=== PATIENT | female | born 1935 | race Caucasian/White ===

== ENCOUNTER 2020-03-27 13:08 | Outpatient (CLI) | payer MEDICARE, SELFPAY ==
--- NOTE | ~2020-03-27 | MM_ITS ---
EXAMINATION: MM screening [facility] BI w yael HISTORY: Screening mammogram TECHNIQUE: Craniocaudal and mediolateral oblique 3-D tomosynthesis images were obtained and synthetic 2-D images were generated. CAD analysis was submitted and interpreted. COMPARISON: 03/16/2019, 03/11/2013 BREAST PARENCHYMAL COMPOSITION: There are scattered areas of fibroglandular density. FINDINGS: There is no evidence of suspicious mass, calcification, or architectural distortion to sugg est malignancy in either breast. There has been no suspicious interval change. IMPRESSION: 1. No mammographic evidence of malignancy. 2. Recommend routine screening mammography in one year. BI-RADS Category 1: Negative Reviewed, dictated and finalized at location A.
== END 2020-03-27 13:09 | disposition home or self-care (01) ==
LOC: CHSIMG 13:10
PROVIDERS: PCP Family Medicine; Visit Provider Family Medicine
DX: Z12.31 Encounter for screening mammogram for malignant neoplasm of breast (principal)
CPT/HCPCS: 77063; 77067

== ENCOUNTER 2020-05-27 09:10 | Emergency (ER) | payer MEDICARE, SELFPAY ==
--- NOTE | ~2020-05-27 | CT_ITS ---
EXAMINATION: CT chest abdomen pelvis w con EXAM DATE: 05/27/2020 11:26 INDICATION: Hx lymphoma chest pain lateral to left mid t spine. TECHNIQUE: Spiral CT of the chest, abdomen and pelvis was performed following intravenous injection o f 100 mL Omnipaque 350. Axial, coronal and sagittal images were reviewed. Coronal maximum intensity pixel images of chest reviewed. The dose-length product (DLP) for this examination was 330.57 mGy-c m. The exposure was tailored according to patient size (auto mA exposure control), and iterative rec onstruction (ASIR) was used as additional dose reduction technique. There is no prior study for jose roberto jones. FINDINGS: CHEST: There is descending thoracic aortic aneurysm, measuring up to 4.6 cm. No dissection flap. The lungs are clear. There are no pleural or pericardial effusions. Tracheobronchial tree is patent. There is no mediastinal, hilar or axillary lymphadenopathy. There is no pneumothorax. Heart nor mal in size. There is mild coronary arterial calcification, arterial sclerosis. No central pulmonar y emboli. ABDOMEN PELVIS: The liver, spleen, adrenal glands and pancreas are unremarkable. Gallbladder is unre markable. No biliary obstruction. Portal and splenic veins are patent. Kidneys enhance symmetrical ly. There is no hydronephrosis. The uterus is unremarkable. The bladder is unremarkable. There is no retroperitoneal or pelvic lymphadenopathy. There is moderate scattered arteriosclerotic disea se. The appendix is normal. There is 4 cm duodenal diverticulum. Stomach and small bowel are unremarkabl e. There is expected amount of colonic stool. No free intraperitoneal gas. There are no osteobla stic or osteolytic lesions identified. IMPRESSION: 1. Descending thoracic aortic aneurysm up to 4.6 cm. No dissection. 2. No acute thoracic or abdominal pelvic findings. 3. No lymphadenopathy. Reviewed, dictated and finalized at location A. HOUSE GUARD
[2020-05-27 09:29] VITALS: BP 177/70; PULSE 69; RESP 20; TEMP 36.9; O2SAT 97
[2020-05-27 10:11] LABS: Basophils Absolute Auto 0.01 K/mm3 (0.00-0.10); Basophils Percent Auto 0.2 % (0.0-1.0); Eosinophils Absolute Auto 0.01 K/mm3 (0.02-0.50); Eosinophils Percent Auto 0.2 % (1.0-6.0); Hematocrit 39.3 % (35.0-42.0); Hemoglobin 12.7 g/dL (11.7-13.8); Immature Granulocyte Absolute 0.01 K/mm3 (0.00-0.00); Immature Granulocyte Percent A 0.2 % (0.0-0.0); Lymphocytes Percent Auto 16.4 % (18.0-42.0); Mean Corpuscular HGB Conc 32.3 g/dL (32.0-36.0); Mean Corpuscular Hemoglobin 31.5 pg (27.0-31.0); Mean Corpuscular Volume 97.5 fL (78.0-102.0); Mean Platelet Volume 9.9 fl (9.2-11.8); Monocytes Percent Auto 14.1 % (2.0-11.0); Neutrophils Absolute Auto 2.9 K/mm3 (1.7-7.2); Neutrophils Percent Auto 68.9 % (50.0-70.0); Platelet Count Result 168 K/mm3 (150-420); Red Blood Count 4.03 M/mm3 (4.20-5.40); Red Cell Distribution Width 13.2 % (11.6-14.4); White Blood Count 4.3 K/mm3 (4.8-10.8)
[2020-05-27 10:26] LABS: Lactic Acid Reflex 1.1 mmol/L (0.4-2.0)
[2020-05-27] MEDS: KETOROLAC 30 MG/ML VIAL (*BKC) IM (10:28)
[2020-05-27 10:33] LABS: Appearance Urine Clear (Clear); Bilirubin Urine Negative (Negative); Color Urine Yellow (Yellow); Glucose Urine UA Negative (Negative); Ketones Urine Negative (Negative); Leukocyte Esterase Ur 3+ (Negative); Nitrate Urine Negative (Negative); Protein Urine Trace (Negative); Urobilinogen Urine 0.2 mg/dL (0.2-1.0)
[2020-05-27 10:33] LABS: Alanine Aminotransferase 23 U/L (14-59); Albumin Level 3.8 g/dL (3.4-5.0); Alkaline Phosphatase 83 U/L (46-116); Anion Gap 8 mmol/L (8-16); Aspartate Amino Transferase 20 U/L (15-37); Bilirubin,Total 0.5 mg/dL (0.00-1.00); Blood Urea Nitrogen 21 mg/dL (7-18); Carbon Dioxide 27 mmol/L (21-32); Chloride 103 mmol/L (98-108); Estimated CRCL calculation 29 ml/min; Estimated Glomerular Filt Rate 39; Glucose 92 mg/dL (70-99); Osmolality Calculated 289 mOsm/kg (285-295); Potassium 3.6 mmol/L (3.5-5.1); Sodium 138 mmol/L (136-145); Total Protein 6.8 g/dL (6.4-8.2)
--- NOTE | 2020-05-27 10:37 | PC.NURSE ---
report to viet valenzuela
[2020-05-27 10:39] LABS: Add Urine Microscopic? YES; Blood Urine Trace-Intact (Negative)
[2020-05-27 10:40] LABS: RBC Urine 0-2 /hpf (0-2); Squamous Epithelial Cell Urine Few /hpf (Few); WBC Urine 21-30 /hpf (0-3)
[2020-05-27 10:41] LABS: Bacteria Urine 1+ /hpf
[2020-05-27 11:00] VITALS: BP 163/74; PULSE 55; O2SAT 97
--- NOTE | 2020-05-27 12:12 | ED.BACK ---
HPI - Back Pain/Injury General Chief Complaint: Back Pain/Injury Stated Complaint: Pain in Back Time Seen by Provider: 05/27/20 09:40 Source: patient Mode of arrival: ambulatory Limitations: no limitations History of Present Illness HPI Narrative: Patient comes in complaining of back pain in the left back at the mid thoracic area. She states this has been ongoing for several days. She does not relate this to any known injury or trama, or heavy lifting or other cause. Pain is moderately severe, dull, not releived by measures at home. MD elicited complaint: back pain Timing: constant Severity: moderate Quality: dull Location: thoracic spine Radiation: none Exacerbating factors: none Relieving factors: none Associated symptoms: denies other symptoms Treatments prior to arrival: NSAIDS Related Data Home Medications Medication Instructions Recorded Confirmed Unable to Obtain Home Medications 05/27/20 05/27/20 Allergies Allergy/AdvReac Type Severity Reaction Status Date / Time aspirin Allergy Unknown Verified 05/27/20 09:37 Penicillins Allergy Unknown Verified 05/27/20 09:37 Review of Systems Constitutional: Constitutional: Reports no additional constitutional complaints Eyes: Eyes: Reports no additional eye complaints ENT: Reports system reviewed and no additional complaints, except as documented Cardiovascular: Cardiovascular: Reports no additional cardiovascular complaints Respiratory: Respiratory: Reports no additional respiratory complaints Gastrointestinal: Gastrointestinal: Reports no additional gastrointestinal complaints Genitourinary: Genitourinary: Reports no additional female genitourinary complaints Musculoskeletal: Musculoskeletal: Reports no additional musculoskeletal complaints Integumentary/Breasts: Skin/Breast: Reports system reviewed and no additional complaints, except as docu Neurologic: Reports system reviewed and no additional complaints, except as documented Psychiatric: Psychiatric: Reports no additional psychiatric complaints Endocrine: Endocrine: Reports no additional endocrine complaints Hematologic/Lymphatic: Hematologic/Lymphatic: Reports no additional hematologic/lymphatic complaints Allergic/Immunologic: Allergic/Immunologic: Reports no additional allergic/immunologic complaints [facility] Past Medical History Medical History Hypothyroid Lymphoma Surgical History Surgical History No significant past surgical history Family History Family History Father Lung cancer Social History Social History Smoking status: Never smoker Alcohol intake: never Living arrangements: alone Exam Const: General: no acute distress HENMT: Head: normal to inspection Ears: external ears normal and TM's normal bilaterally General nose exam: Normal external nose present and Normal nares present Throat: posterior oropharynx normal Eyes: Conjunctivae: conjunctivae normal Neck: Neck: normal visual inspection and no lymphadenopathy Chest: Chest palpation & inspection: normal inspection of the chest Resp: Effort & Inspection: normal respiratory effort Auscultation: clear to auscultation bilaterally Cardio: Rate: regular rate Rhythm: regular rhythm GI: GI Palp: Yes Soft to palpation Other: nontender Skin: General skin exam: normal color Neuro: General: patient oriented x3 and moves all extremities Extrem: General: normal to inspection Psych: Appearance: grossly normal Mental Status: mental status grossly normal Thought content: Yes Normal thought content present Course Course Emergency Course: Labs and CT were reviewed with the patient and the family member. It appears she has a pyelonephritis. She was given Rocephin 1 gram, and discharged with a script for le
[2020-05-27 12:32] VITALS: BP 166/71; PULSE 59; O2SAT 96
== END 2020-05-27 12:30 | disposition home or self-care (01) ==
PROVIDERS: Emergency Provider Emergency Medicine; PCP Family Medicine
DX: N12 Tubulo-interstitial nephritis, not specified as acute or chronic (principal)
CPT/HCPCS: 36415; 71260; 74177; 80053; 81001; 83605; 85025; 87086; 87088; 96365; 96372; 99283; 99284; J0696; J1885; Q9965; Q9967

== ENCOUNTER 2020-11-02 07:30 | Outpatient (CLI) | payer MEDICARE, SELFPAY ==
--- NOTE | ~2020-11-02 | CT_ITS ---
EXAMINATION: CTA chest EXAM DATE: 11/02/2020 09:15 INDICATION: Descending thoracic aortic aneurysm f/u, mid to upper posterior back pain. History of lym phoma. TECHNIQUE: Spiral CT angiogram of the chest following intravenous injection of 100 mL Omnipaque 350. Axial, coronal and sagittal images of the chest were reviewed. Coronal maximum intensity pixel imag es of chest reviewed. Maximum intensity projection 3-D reconstructions of the aorta were created by pierce duke technologist on dedicated workstation. The dose-length product (DLP) for this examination was 238 .42 mGy-cm. The exposure was tailored according to patient size (auto mA exposure control), and iter ative reconstruction (ASIR) was used as additional dose reduction technique. Comparison is made to pr ior examination from 05/27/2020. FINDINGS: There is descending thoracic aortic ectasia, aneurysmal dilations with mild interval increase in maxi mal diameter, now at 4.9 cm (was 4.6 cm on previous examination last May). No dissection flap. T he lungs are clear. There are no pleural or pericardial effusions. Tracheobronchial tree is paten t. There is no mediastinal, hilar or axillary lymphadenopathy. There is no pneumothorax. Heart normal in size. There is mild coronary arterial calcification, arterial sclerosis. No central pulmo nary emboli. There is geographically shaped low density within most of the spleen, consistent with infarction. No evidence of splenic venous or arterial thrombosis. IMPRESSION: 1. Increase in size of descending thoracic aortic aneurysm, now up to 4.9 cm; consider prophylactic treatment. 2. 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 I discussed this case with nurse Church in the office of Marcos MaldonadoMD at 11/02/2020 10:32 CDT. S he requested that I faxed the report. Reviewed, dictated and finalized at location B. IMPRESSION: 1. Increase in size of descending thoracic aortic aneurysm, now up to 4.9 cm; consider prophylactic treatment. 2. 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 I discussed this case with nurse Lynnette in the office of Marcos MaldonadoMD at 11/02/2020 10:32 CDT. She requested that I faxed the report.
[2020-11-02 07:56] LABS: Estimated Glomerular Filt Rate 34
== END 2020-11-02 07:31 | disposition home or self-care (01) ==
LOC: CHSIMG 07:31
PROVIDERS: PCP Family Medicine; Visit Provider Family Medicine
DX: I71.2 Thoracic aortic aneurysm, without rupture (principal)
CPT/HCPCS: 71275; Q9967

== ENCOUNTER 2020-11-19 13:14 | Outpatient (CLI) | payer MEDICARE, SELFPAY ==
--- NOTE | ~2020-11-19 | DEXA_ITS ---
Bone Density Report Name: Ileana Francisco Age: 84 Sex: Female Ethnicity: White Date of : 1935 Indication: postmenopausal; screening for osteoporosis; cancer; Referring Provider: Erica, Marcos Study: Bone densitometry was performed. Exam Date: November 19, 2020 Accession number: [id number] There is hypertrophic degenerative change of the lumbar spine, which results in higher than expected spine bone mineral density measurements. These spine BMD and T score and Z score measurements are not reflective of the patient's true general bone mineral density. Bone Density: Region BMD T-score Z-score Classification AP Spine(L1-L4) 0.700 -3.2 -0.4 Osteoporosis Femoral Neck (Left) 0.507 -3.1 -0.7 Osteoporosis Total Hip (Left) 0.649 -2.4 -0.2 Osteopenia Femoral Neck (Right) 0.528 -2.9 -0.5 Osteoporosis Total Hip (Right) 0.685 -2.1 0.1 Osteopenia Femoral Neck Mean 0.517 -3.0 -0.6 Osteoporosis Total Hip Mean 0.667 -2.3 0.0 Osteopenia World Health Organization criteria for BMD impression classify patients as: Normal (T-score at or above -1.0), Osteopenia (T-score between -1.0 and -2.5), or Osteoporosis (T-score at or below -2.5). 10-year Fracture Risk: FRAX not reported because: Some T-score for Spine Total or Hip Total or Femoral Neck at or below -2.5 Clinical Information Provided by Patient: Has used the following medications: Actonel (i.e. risedronate) Has the following medical conditions: Cancer No regular weight bearing exercise Drinks caffeinated beverages Onset of menses at age 15 Impression: The patient has osteoporosis, based on the Total Spine T-score. There is hypertrophic degenerative change of the lumbar spine, which results in higher than expected spine bone mineral density measurements. These spine BMD and T score and Z score measurements are not reflective of the patient's true general bone mineral density. Discussion: INCREASED RISK OF FRACTURE. BONE DENSITY IS UNDESIRABLY LOW AT ONE OR MORE SKELETAL SITES, CONSISTENT WITH POSTMENOPAUSAL OSTEOPOROSIS. This patient's lowest T-score meets the World Health Organization's (WHO) criteria for osteoporosis at one or more sites (T-score -2.5 or below). In untreated patients, the risk of osteoporotic fracture increases approximately two-fold for each 1.0 SD decrease in T-score. Low bone density is not the only risk factor for fracture; also consider factors such as patient's age, frailty or poor health, risk of falling, risk of injury, previous osteoporotic fracture, family history of osteoporosis, cigarette smoking, low body weight, etc. Not everyone with low bone mineral density has osteoporosis; osteomalacia and other metabolic bone disorders should also be considered. Patients who have osteoporosis should be evaluated for specific diseases and conditions (sec
== END 2020-11-19 13:15 | disposition home or self-care (01) ==
LOC: CHSIMG 13:15
PROVIDERS: PCP Family Medicine; Visit Provider Family Medicine
DX: Z78.0 Asymptomatic menopausal state (principal)
CPT/HCPCS: 77080

== ENCOUNTER 2021-03-20 11:51 | Outpatient (CLI) | payer MEDICARE, SELFPAY ==
--- NOTE | ~2021-03-20 | XR_ITS ---
XR chest 2V 03/20/2021 12:30 Indication: Thoracic pain Procedure: 2 view chest Comparison: 03/14/2019 Findings: No focal air space disease, pulmonary edema, pleural effusion or suspected pneumothorax. Th ere is a known descending thoracic aortic aneurysm. Heart size normal. No acute osseous abnormality. Impression: 1: No acute cardiopulmonary disease. 2: Descending thoracic aortic aneurysm. Reviewed, dictated and finalized at location B. Impression: 1: No acute cardiopulmonary disease. 2: Descending thoracic aortic aneurysm.
--- NOTE | ~2021-03-20 | XR_ITS ---
EXAMINATION: XR thoracic spine 3V DATE: 03/20/2021 12:30 INDICATION: Thoracic back pain TECHNIQUE: AP, lateral and lateral swimmer's views of the thoracic spine were obtained. COMPARISON: 06/14/2019 FINDINGS: There is no fracture. The vertebral body heights and alignment are normal. There is mild th oracic dextrocurvature. There is mild loss of intervertebral disc space height in the midthoracic spi ne. Degenerative osteophytes project from the anterior endplates of multiple vertebral bodies. IMPRESSION: 1. Mild thoracic spondylosis without acute findings or significant interval change. Reviewed, dictated and finalized at location A. IMPRESSION: 1. Mild thoracic spondylosis without acute findings or significant interval ben josephe.
== END 2021-03-20 11:52 | disposition home or self-care (01) ==
PROVIDERS: PCP Family Medicine; Visit Provider Family Medicine
DX: M54.6 Pain in thoracic spine (principal)
CPT/HCPCS: 71046; 72072

== ENCOUNTER 2021-03-26 08:01 | Outpatient (CLI) | payer MEDICARE, SELFPAY ==
--- NOTE | ~2021-03-26 | MR_ITS ---
EXAMINATION: MR brain/brain stem wo/w con DATE: 03/26/2021 09:51 INDICATION: Cognitive decline. TECHNIQUE: Magnetic resonance imaging (MRI) of the brain and brainstem was performed without intraven ous contrast. Sequences included sagittal and axial T1-weighted FSE, axial diffusion-weighted FS EPI, axial T2*-weighted GRE, axial T2-weighted FLAIR Propeller, and axial T2-weighted Propeller. The greyson mated GFR was too low for contrast. Apparent diffusion coefficient (ADC) maps were created. COMPARISON: None. FINDINGS: There is a small acute infarct in left frontal lobe. There are scattered areas of nonspecif ic increased T2-weighted signal intensity in the cerebral white matter, which is within normal limits for the patient's age. There is no intracranial hemorrhage or abnormal mass lesion. The ventricles a re normal in size. The orbits are normal. There is mild mucosal thickening in the ethmoid sinuses. Th e mastoid air cells are normal. IMPRESSION: 1. Small acute infarct in left frontal lobe. Reviewed, dictated and finalized at location A.
[2021-03-26 08:24] LABS: Estimated Glomerular Filt Rate 34
== END 2021-03-26 08:02 ==
LOC: CHSIMG 08:02
PROVIDERS: PCP Family Medicine; Visit Provider Family Medicine
DX: R41.89 Other symptoms and signs involving cognitive functions and awareness (principal); I63.9 Cerebral infarction, unspecified
CPT/HCPCS: 70553

== ENCOUNTER 2021-04-12 13:52 | Outpatient (CLI) | payer MEDICARE, SELFPAY ==
--- NOTE | ~2021-04-12 | US_ITS ---
EXAMINATION: US carotid duplex BI DATE: 04/12/2021 14:29 INDICATION: Cerebrovascular accident TECHNIQUE: Grayscale, color Doppler, and pulsed Doppler images of the cervical carotid arteries were obtained. The degree of vessel stenosis is placed in one of the following categories: normal, <50%, 5 0-69%, >=70% but less than near-occlusion, near-occlusion, or total occlusion. Note that percent sten osis relative to normal distal artery lumen diameter is indirectly measured from velocity measurement s as described by Dexter, et al. Radiology 2003; 229:340-346. Notes: Normal: Peak systolic velocity <125 centimeters/sec and no plaque <50%. Peak systolic velocity <125 ( EDV <40; ICA/CCA PSV ratio <2.0; used these factors only a tandem lesions or low cardiac output or co ntralateral disease) 50-69 %: PSV 125-230 (EDV 40-100; ratio 2-4) >= 70% but less than near occlusion: PSV greater than 230 (EDV > 100; ratio> 4.0) Near Occlusion: PSV that is variable; markedly narrowed lumen Occlusion: Absent flow on color/spectral Doppler and no lumen on serrato scale. COMPARISON: None. FINDINGS: RIGHT: The right common carotid artery (CCA) peak systolic velocity (PSV) is 65 cm/s. The right internal car otid artery (ICA) PSV is 51 cm/s. The right ICA end-diastolic velocity (EDV) is 11 cm/s. The right IC A/CCA PSV ratio is 0.8. The external carotid artery (ECA) PSV is 61 cm/s. There is antegrade flow in the right vertebral artery. LEFT: The left CCA PSV is 70 cm/s. The left ICA PSV is 62 cm/s. The left ICA EDV is 17 cm/s. The left ICA/C CA PSV ratio is 0.9. The ECA PSV is 62 cm/s. There is antegrade flow in the left vertebral artery. IMPRESSION: 1. Less than 50% stenosis in the right internal carotid artery by sonographic criteria. 2. Less than 50% stenosis in the left internal carotid artery by sonographic criteria. Reviewed, dictated and finalized at location A. LITIES AND GROUNDS DIRECTOR IMPRESSION: 1. Less than 50% stenosis in the right internal carotid artery by sonographic tuan wen. 2. Less than 50% stenosis in the left internal carotid artery by sonographic vale jaimes.
== END 2021-04-12 13:53 | disposition home or self-care (01) ==
LOC: CHSIMG 13:53
PROVIDERS: PCP Family Medicine; Visit Provider Family Medicine
DX: I63.9 Cerebral infarction, unspecified (principal)
CPT/HCPCS: 93880

== ENCOUNTER 2021-04-18 12:12 | Outpatient (CLI) | payer MEDICARE, SELFPAY ==
--- NOTE | 2021-04-18 09:30 | ECHO_ITS ---
Patient Info Name: Ileana Francisco Age: 85 years : 1935 Gender: Female Ht: 62 in Wt: 150 lbs BSA: 1.74 m2 HR: 57 bpm BP: 174 / 80 mmHg Exam Date: 04/18/2021 1:46 PM Exam Location: [facility] Patient Status: Outpatient Admit Date: 04/18/2021 Staff Ordering Physician: EricaMarcos MD Laborer Tin Can: Nila Attending Provider: EricaMarcos MD Exam Type: CA echo doppler color flow Study Info Indications I63.219 - Cerebral infarction due to unspecified occlusion or stenosis of unspecified vertebral arteries Complete two-dimensional, color flow and Doppler transthoracic echocardiogram is performed. Strain analysis performed. Summary 1. Complete two-dimensional, color flow and Doppler transthoracic echocardiogram is performed. 2. Left ventricular chamber dimension is normal. 3. Left ventricular systolic function is normal, estimated at 55-60%. 4. The left ventricular diastolic function is grade I diastolic dysfunction. 5. E/e' 13 is mildly elevated. 6. Global longitudinal strain is normal at -17.2%. 7. Left atrial chamber dimension is mildly enlarged. 8. There is mild aortic valve sclerosis. 9. The mitral valve has moderately calcified annulus. 10. There is mild pulmonic regurgitation. Left Ventricle E/e' 13 is mildly elevated. Global longitudinal strain is normal at -17.2%. Left ventricular chamber dimension is normal. Left ventricular systolic function is normal, estimated at 55-60%. The left ventricular diastolic function is grade I diastolic dysfunction. Right Ventricle Right ventricular systolic function is normal and with normal TAPSE 1.7 cm. Right ventricular chamber dimension is normal. Left Atria Left atrial chamber dimension is mildly enlarged. Right Atria Right atrial chamber dimension is normal. Aortic Valve The aortic valve is trileaflet. There is mild aortic valve sclerosis. There is no aortic valve stenosis. There is no aortic valve regurgitation. Pulmonic Valve There is mild pulmonic regurgitation. Mitral Valve The mitral valve has moderately calcified annulus. There is no mitral valve stenosis. There is no mitral valve regurgitation. Tricuspid Valve There is no tricuspid valve regurgitation. Pericardium/Pleural There is no pericardial effusion. Inferior Vena Cava Normal inferior vena cava with >50% collapse upon inspiration consistent with normal right atrial pressure, 5 mmHg. Aorta The aortic root size at the sinus of Valsalva is normal. Left Ventricular Outflow Tract Name Value Normal LVOT 2D LVOT Diameter 1.9 cm LVOT Doppler LVOT Peak Velocity 116 cm/s LVOT Peak Gradient 5 mmHg LVOT Mean Gradient 2 mmHg LVOT VTI 22 cm LVOT VTI/AV VTI Ratio 0.8 LVOT Stroke Volume 61 ml Mitral Valve Name Value Normal
== END 2021-04-18 12:13 | disposition home or self-care (01) ==
LOC: CHSIMG 12:14
PROVIDERS: PCP Family Medicine; Visit Provider Family Medicine
DX: I63.9 Cerebral infarction, unspecified (principal)
CPT/HCPCS: 93306

== ENCOUNTER 2021-10-02 12:43 | Outpatient (CLI) | payer MEDICARE, SELFPAY ==
--- NOTE | ~2021-10-02 | MM_ITS ---
EXAMINATION: MM screening [facility] BI w yael HISTORY: Screening mammogram TECHNIQUE: Craniocaudal and mediolateral oblique 3-D tomosynthesis images were obtained and synthetic 2-D images were generated. CAD analysis was submitted and interpreted. COMPARISON: 03/27/2020, 03/16/2019 bilateral screening mammogram examinations BREAST PARENCHYMAL COMPOSITION: There are scattered areas of fibroglandular density. FINDINGS: There is a biopsy marker on the left. There is no evidence of suspicious mass, calcificatio n, or architectural distortion to suggest malignancy in either breast. There has been no suspicious i nterval change. IMPRESSION: 1. No mammographic evidence of malignancy. 2. Recommend routine screening mammography in one year. BI-RADS Category 1: Negative Reviewed, dictated and finalized at location D.
== END 2021-10-02 12:44 | disposition home or self-care (01) ==
LOC: CHSIMG 12:44
PROVIDERS: PCP Family Medicine; Visit Provider Family Medicine
DX: Z12.31 Encounter for screening mammogram for malignant neoplasm of breast (principal)
CPT/HCPCS: 77063; 77067

== ENCOUNTER 2022-09-25 16:50 | Emergency (ER) | payer MEDICARE, SELFPAY ==
--- NOTE | ~2022-09-25 | XR_ITS ---
EXAMINATION: XR thoracolumbar DATE: 09/25/2022 18:05 INDICATION: Mid to low back pain. TECHNIQUE: 2 views of the thoracolumbar spine on 4 radiographs were obtained. COMPARISON: Thoracic spine radiographs 03/20/2021 FINDINGS: There is 23 degrees levoscoliosis of thoracolumbar spine. Vertebral body heights are normal . There is 3 mm retrolisthesis of L2 on L3 and L3 on L4. There are endplate osteophytes at most level s. There is severely decreased disc height at L2-L3. There is multilevel severe facet joint osteoarth ritis in lower lumbar spine. IMPRESSION: 1. Severe lumbar spondylosis. 2. Thoracolumbar levoscoliosis. Reviewed, dictated and finalized at location E.
[2022-09-25 16:50] VITALS: BP 123/66; PULSE 65; RESP 16; TEMP 36.5; O2SAT 98
[2022-09-25] MEDS: ACETAMINOPHEN 500 MG TABLET 1000 MG PO (17:45)
--- NOTE | 2022-09-25 18:20 | ED.FALL ---
HPI - Fall General Chief Complaint: Fall Stated Complaint: fall Time Seen by Provider: 09/25/22 17:05 Source: patient and family Mode of arrival: ambulatory Limitations: no limitations History of Present Illness HPI Narrative: This is a 86-year-old female that presents after she was walking outdoors and peak is now up her meals on wheels and tripped on over size shoes that she put on toe step outside patient feels that she tweaked her back and is having mid and low back pain from the fall with no loss of consciousness no head injury no other injuries. complaint: fall Onset (ago): hour(s) Fall from: standing Fall witnessed: no Place fall occurred: home Loss of consciousness: none Prolonged down time: no Symptoms prior to fall: none Context: tripped/slipped Severity: moderate Severity scale (1-10): 6 Quality: aching Related Data Home Medications Medication Instructions Recorded Confirmed Unable to Obtain Home Medications 05/27/20 05/27/20 Allergies Allergy/AdvReac Type Severity Reaction Status Date / Time aspirin Allergy Unknown Verified 09/25/22 17:18 Penicillins Allergy Unknown Verified 09/25/22 17:18 Review of Systems Review of Systems: All systems reviewed & are unremarkable except as noted in HPI and below PMFSH Past Medical History Medical History Hypothyroid Lymphoma Surgical History Surgical History No significant past surgical history Family History Family History Father Lung cancer Social History Social History Smoking status: Never smoker Alcohol intake: never Living arrangements: alone Exam Const: General: healthy appearing Nutritional Appearance: well nourished Orientation/consciousness: patient oriented x3 Limitations: no limitations HENMT: Face/Nose/Sinus: Normal external nose present Face and sinus: normal facial exam Eyes: Conjunctivae: conjunctivae normal Pupils: Equal, round and reactive pupils present EOM: EOMs intact bilaterally Direct Ophthalmoscopy: no photophobia Neck: Neck: normal visual inspection Chest: Chest palpation & inspection: normal inspection of the chest Resp: Effort & Inspection: normal respiratory effort Cardio: Rate: regular rate Rhythm: regular rhythm GI: GI Palp: Yes Soft to palpation Auscultation: normal bowel sounds Urinary Catheter: Urinary Catheter: patent and draining Back/Spine/Pelvis: Back: no CVA tenderness Skin: General skin exam: normal color Rashes: no rashes Wounds: no wounds Neuro: General: patient oriented x3 and moves all extremities Cranial nerves: Yes Nystagmus not present Extrem: General: normal to inspection Psych: Mental Status: mental status grossly normal Affect: normal affect Course Course Emergency Course: Patient had IM Toradol which improved her pain level and x-ray of the thoracic and lumbar spine showed no acute fractures. Vital Signs Vital signs: Vital Signs Temperature 36.5 C 09/25/22 16:50 Pulse Rate 65 09/25/22 16:50 Respiratory Rate 16 09/25/22 16:50 Blood Pressure 123/66 09/25/22 16:50 Pulse Oximetry 98 09/25/22 16:50 Oxygen Delivery Room Air 09/25/22 16:50 Temperature 36.5 C 09/25/22 16:50 Pulse Rate 65 09/25/22 16:50 Respiratory Rate 16 09/25/22 16:50 Blood Pressure 123/66 09/25/22 16:50 Pulse Oximetry 98 09/25/22 16:50 Oxygen Delivery Room Air 09/25/22 16:50 Critical Care Time Critical Care Time Critical Care Time: No Discharge Plan Discharge Clinical Impression: Back strain Qualifiers: Encounter type: initial encounter Qualified Code(s): S39.012A - Strain of muscle, fascia and tendon of lower back, initial encounter Patient Disposition: Home, Self-Care Condition: Stable Instruct
[2022-09-25 18:27] VITALS: BP 130/65; PULSE 78; RESP 16; TEMP 36.2; O2SAT 99
== END 2022-09-25 18:29 | disposition home or self-care (01) ==
PROVIDERS: Emergency Provider Emergency Medicine
DX: S39.012A Strain of muscle, fascia and tendon of lower back, initial encounter (principal); E03.9 Hypothyroidism, unspecified; W01.0XXA Fall on same level from slipping, tripping and stumbling without subsequent striking against object, initial encounter; Y92.009 Unspecified place in unspecified non-institutional (private) residence as the place of occurrence of the external cause
CPT/HCPCS: 72080; 99283